=== PATIENT | female | born 1985 | race Caucasian/White ===

== ENCOUNTER → 2020-04-09 | Outpatient (CLI) | payer OTHER ==
--- NOTE | 2020-04-09 12:36 | REP ---
INDICATION: + PREG DATING VILBILITY COMPARISON: None. TECHNIQUE: Transabdominal and transvaginal 1st trimester obstetrical ultrasound with color Doppler evaluation. FINDINGS: Heterogeneous anteverted uterus measures 9.3 x 4.6 x 5.9 cm. Endometrial complex measures 7.5 mm without evidence for decidual reaction or evidence for intrauterine . Bilateral maternal ovaries are relatively normal in appearance and vascularity without torsion. Right ovary measures 2.7 x 1.8 x 2.7 cm (RI 0.55) and includes 1.6 cm simple cyst. Left ovary measures 3.3 x 2.1 x 2.0 cm (RI 0.63) and includes 1.7 cm complex cyst possible corpus luteum. No pelvic fluid or adnexal mass lesion. IMPRESSION: No intrauterine identified. No pelvic fluid or adnexal mass lesion. Differential diagnosis includes early , recent spontaneous , and less likely ectopic cannot definitively be excluded. Correlation with serial HCG levels and repeat ultrasound if necessary. <Electronically signed by Victor Hugo Herrera > 04/09/20 [id number]
== END ==
LOC: M RAD 11:38
PROVIDERS: ATTEND Midwife
DX: Z34.80 Encounter for supervision of other normal pregnancy, unspecified trimester (principal); Z36.87 Encounter for antenatal screening for uncertain dates; N83.201 Unspecified ovarian cyst, right side

== ENCOUNTER → 2020-06-07 | Outpatient (REF) | payer OTHER ==
[2020-06-07 14:57] LABS: BASO % 0.7 % (0.0-1.0); EOS # 0.1 10^3/uL (0.0-0.5); EOS % 2.3 % (0.0-3.0); HEMATOCRIT 41.2 % (36.0-47.0); HEMOGLOBIN 13.6 g/dl (12.0-15.5); LYMPH # 1.5 10^3/uL (1.5-5.0); MEAN CORPUSCULAR HEMOGLOBIN 31.8 pg (27.0-33.0); MEAN CORPUSCULAR VOLUME 96.3 fl (80.0-96.0); MONO # 0.7 10^3/uL (0.0-0.8); MONO % 12.4 % (0.0-5.0); NEUTROPHILS # 3.2 10^3/uL (1.5-8.5); NEUTROPHILS % 57.4 % (36.0-66.0); PLATELET COUNT, AUTOMATED 242 10^3/uL (150-450); RED BLOOD COUNT 4.28 10^6/uL (4.00-5.40); WHITE BLOOD COUNT 5.6 10^3/uL (4.0-10.0)
[2020-06-07 15:01] LABS: HEMATOCRIT 41.2 % (36.0-47.0)
[2020-06-07 15:34] LABS: THYROID STIMULATING HORMONE 1.12 uIU/ML (0.358-3.740)
== END ==
LOC: M SFHCPLAZ 09:44
PROVIDERS: ATTEND Family Medicine
DX: D75.89 Other specified diseases of blood and blood-forming organs (principal); Z83.49 Family history of other endocrine, nutritional and metabolic diseases
CPT/HCPCS: 36415; 82607; 82747; 84443; 85025; G0463

== ENCOUNTER → 2020-07-23 | Outpatient (REF) | payer OTHER ==
[2020-07-24 17:07] LABS: CARDIOLIPIN IGA ANTIBODY <9 APL U/mL (0-11); CARDIOLIPIN IGG ANTIBODY <9 GPL U/mL (0-14); CARDIOLIPIN IGM ANTIBODY <9 MPL U/mL (0-12); CYTOMEGALOVIRUS IgG ANTIBODY >10.00 U/mL (0.00-0.59); CYTOMEGALOVIRUS IgM ANTIBODY <30.0 AU/mL (0.0-29.9)
== END ==
LOC: M PLALAB 11:18
PROVIDERS: ATTEND Specialist
DX: O26.21 Pregnancy care for patient with recurrent pregnancy loss, first trimester (principal)

== ENCOUNTER 2021-04-03 14:28 | Emergency (ER) | payer OTHER ==
[~2021-04-03] VITALS: Ht 165.1 cm; Wt 56.6 kg
[2021-04-03 14:28] VITALS: BP 111/57
[2021-04-03 15:08] LABS: APPEARANCE, URINE CLEAR (CLEAR); BACTERIA, URINE AUTO NEGATIVE (NEGATIVE); BILIRUBIN, URINE AUTO NEGATIVE (NEGATIVE); BLOOD, URINE BLOOD NEGATIVE (NEGATIVE); COLOR, URINE COLORLESS (YELLOW); GLUCOSE, URINE (UA) AUTO NEGATIVE (NEGATIVE); KETONE, URINE AUTO NEGATIVE (NEGATIVE); LEUKOCYTE ESTERASE, URINE AUTO NEGATIVE (NEGATIVE); NITRITE, URINE AUTO NEGATIVE (NEGATIVE); PROTEIN, URINE AUTO NEGATIVE (NEGATIVE); RBC, URINE AUTO 1 /HPF (0-3); SPECIFIC GRAVITY URINE AUTO 1.002 (1.002-1.035); SQUAMOUS EPITHELIAL CELL UR AU 1 /HPF (0-6); UROBILINOGEN, URINE AUTO 0.2 mg/dL (0.0-2.0); WBC, URINE AUTO 1 /HPF (0-3)
--- NOTE | 2021-04-03 15:45 | REP ---
INDICATION: spotting, 10 weeks COMPARISON: None. TECHNIQUE: Transabdominal 1st trimester obstetrical ultrasound with color Doppler evaluation FINDINGS: Single live early intrauterine is appreciated. Gestational sac with yolk sac and pole identified. Buna-rump length of 25 mm corresponds to 9 weeks 2 days gestational age with estimated date of delivery 11/04/2021. heart rate equals 165 beats per minute. Right corpus luteal cyst noted. IMPRESSION: Single live early intrauterine at 9 weeks 2 days gestational age. Complete anatomical assessment should be performed and 19-20 weeks. <Electronically signed by Victor Hugo Herrera > 04/03/21 0430
[2021-04-03 16:06] LABS: HEMATOCRIT 35.7 % (36.0-47.0); HEMOGLOBIN 12.7 g/dl (12.0-15.5); MEAN CORPUSCULAR HEMOGLOBIN 33.2 pg (27.0-33.0); MEAN CORPUSCULAR HGB CONC 35.6 g/dl (32.0-36.5); MEAN CORPUSCULAR VOLUME 93.5 fl (80.0-96.0); PLATELET COUNT, AUTOMATED 219 10^3/uL (150-450); RED BLOOD COUNT 3.82 10^6/uL (4.00-5.40); WHITE BLOOD COUNT 6.1 10^3/uL (4.0-10.0)
== END 2021-04-03 16:14 | disposition home or self-care (01) ==
LOC: M ED 14:28
DX: O26.891 Other specified pregnancy related conditions, first trimester (principal); R30.0 Dysuria; Z91.018 Allergy to other foods; Z3A.09 9 weeks gestation of pregnancy

== ENCOUNTER 2021-11-03 10:55 | Inpatient (IN) | payer OTHER ==
[~2021-11-03] VITALS: Ht 165.1 cm; Wt 68.7 kg
[2021-11-03] VITALS (10 sets, daily range): BP systolic 101–120; BP diastolic 55–67
[2021-11-03] MEDS ORDERED: PRENTAB9 PO (11:14)
[2021-11-03] MEDS ORDERED: CVS1CAP2 PO (11:14)
[2021-11-03] MEDS ORDERED: TUMS750C5 PO (11:14)
[2021-11-03] MEDS ORDERED: FOLI20CA PO (11:14)
[2021-11-03] MEDS ORDERED: HOME MED LIST COMPLETE! XX SCH (11:15)
[2021-11-03] MEDS ORDERED: LIDOCAINE 1% MDV 20ML VIAL INFIL PRN (11:35)
[2021-11-03] MEDS ORDERED: TRANEXAMIC ACID INJection 1,000 MG in NS 100 ML IV PRN (11:35)
[2021-11-03] MEDS ORDERED: OXYTOCIN INJ 10 UNITS/ML VIAL (J2590) IV PRN (11:35)
[2021-11-03] MEDS ORDERED: METHYLERGONOVINE MALEATE 0.2 MG/ML VIAL (J2210) IM PRN (11:35)
[2021-11-03] MEDS ORDERED: CARBOPROST TROMETHAMINE 250 MCG/ML AMP IM PRN (11:35)
[2021-11-03] MEDS ORDERED: OXYTOCIN DRIP 30 UNITS in IV 1 EA IV PRN ×4 (11:35)
[2021-11-03] MEDS ORDERED: LR 1,000 ML IV SCH (12:00)
[2021-11-03 12:12] LABS: HEMATOCRIT 35.6 % (36.0-47.0); HEMOGLOBIN 12.6 g/dl (12.0-15.5); MEAN CORPUSCULAR HEMOGLOBIN 33.9 pg (27.0-33.0); MEAN CORPUSCULAR HGB CONC 35.4 g/dl (32.0-36.5); MEAN CORPUSCULAR VOLUME 95.7 fl (80.0-96.0); PLATELET COUNT, AUTOMATED 195 10^3/uL (150-450); RED BLOOD COUNT 3.72 10^6/uL (4.00-5.40); WHITE BLOOD COUNT 9.3 10^3/uL (4.0-10.0)
[2021-11-03] MEDS ORDERED: DIBUCAINE 1% OINTMENT 30GM TOP PRN (15:20)
[2021-11-03] MEDS ORDERED: ACETAMINOPHEN 500 MG TAB PO PRN (15:20)
[2021-11-03] MEDS ORDERED: ACETAMINOPHEN TAB 650MG DOSE (2X325MG) PO PRN (15:20)
[2021-11-03] MEDS ORDERED: IBUPROFEN 600MG TAB PO PRN (15:20)
[2021-11-03] MEDS ORDERED: DOCUSATE SODIUM 100MG CAPSULE PO PRN (15:20)
[2021-11-03] MEDS ORDERED: METHYLERGONOVINE MALEATE 0.2 MG TAB PO PRN (15:20)
[2021-11-03] MEDS ORDERED: OXYTOCIN DRIP 30 UNITS in IV 1 EA IV SCH (15:30)
[2021-11-03] MEDS ORDERED: LIDOCAINE 1% MDV 20ML VIAL SC ONE (15:55)
[2021-11-04 05:30] VITALS: BP 115/67
[2021-11-04] MEDS ORDERED: IBUP-1022 PO (06:04)
[2021-11-04] MEDS ORDERED: ACET1TAB55 PO (06:04)
[2021-11-04] MEDS ORDERED: COLA100C5 PO (06:04)
[2021-11-04] MEDS: IBUPROFEN 800 MG TAB PO PRN ×2 (08:20→16:47)
[2021-11-04] MEDS ORDERED: PRENATAL VITAMINS CHEWABLE TABLET PO SCH (09:00)
== END 2021-11-04 17:00 | disposition home or self-care (01) | DRG 807 ==
LOC: M LDO 10:55 → M LDI 11:34 → M OBS 19:06
PROVIDERS: ADMIT Advanced Practice Midwife; ATTEND Advanced Practice Midwife
PROC: 10E0XZZ Delivery of Products of Conception, External Approach (ICD-10-PCS; principal; 2021-11-03)
PROC: 0HQ9XZZ Repair Perineum Skin, External Approach (ICD-10-PCS; 2021-11-03)
DX: O69.1XX0 Labor and delivery complicated by cord around neck, with compression, not applicable or unspecified (principal); Z37.0 Single live birth; Z3A.40 40 weeks gestation of pregnancy; O70.0 First degree perineal laceration during delivery